=== PATIENT | female | born 1950 | race African-American/Black ===

== ENCOUNTER 2017-05-11 04:29 | Emergency (ER) | payer OTHER ==
--- NOTE | 2017-05-11 04:42 | PDOC ---
History of Present Illness - General History Source: Patient Exam Limitations: No Limitations - History of Present Illness Initial Comments: 05/11/17 05:50 The patient is a 66 year old female with a significant past medical history of HTN, HLD, and arthritis who presents to the ED with arm numbness since earlier today. The patient reports she fell asleep around 10pm last night and had a sudden onset of right arm numbness that woke her up from her sleep at 3am earlier today. The patient reports numbness, tingling, and a burning like sensation on her right hand that radiates up her arm. Patient states she typically has chronic bilateral arm pain secondary to her arthritis but notes her symptoms worsened tonight. Denies recent fall, trauma, or injury. Denies dysuria or change in urinary output. Denies chest pain or shortness of breath. Denies fever or chills. Denies sore throat. Denies nausea, vomiting, or diarrhea. Denies any other symptoms. Social hx: Patient lives at home, is retired and does not drive. 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) Disorders: No HTN: Yes Hypercholesterolemia: Yes Liver Disease: No Seizures: No Thyroid Disease: No - Surgical History Abdominal Surgery: Yes (RIGHT INGUINAL HERNIA REPAIRED) Appendectomy: No Cardiac Surgery: No Cholecystectomy: No Lung Surgery: No Neurologic Surgery: No Orthopedic Surgery: Yes (LEFT BUNIONECTOMY) - Suicide/Smoking/Psychosocial Hx Smoking Status: No Smoking History: Never smoked Have you smoked in the past 12 months: No Number of Cigarettes Smoked Daily: 0 Hx Alcohol Use: No Drug/Substance Use Hx: No Substance Use Type: None Hx Substance Use Treatment: No <Berenice Carmen - Last Filed: 05/11/17 06:35> - Past Medical History Allergies/Adverse Reactions: Allergies Allergy/AdvReac Type Severity Reaction Status Date / Time No Known Drug Allergies Allergy Verified 05/11/17 04:37 Home Medications: Ambulatory Orders Aspirin 81 mg PO DAILY 08/06/12 Omeprazole [Prilosec (RX)] 20 mg PO DAILY 08/06/12 Verapamil HCl [Verelan] 360 mg PO DAILY 08/06/12 Furosemide [Lasix -] 20 mg PO DAILY 10/04/14 Hydralazine HCl 100 mg PO BID 10/04/14 Multivit-Min/Folic Acid/Vit K1 [Multi For Her 50 Plus Softgel] 1 each PO DAILY 05/11/17 Review of Systems - Review of Systems Able to Perform ROS?: Yes Comments:: 05/11/17 05:50 CONSTITUTIONAL: Absent: fever, chills, diaphoresis, generalized weakness, malaise, loss of appetite HEENT: Absent: rhinorrhea, nasal congestion, throat pain, throat swelling, difficulty swallowing, mouth swelling, ear pain, eye pain, visual Changes CARDIOVASCULAR: Absent: chest pain, syncope, palpitations, irregular heart rate, lightheadedness , peripheral edema RESPIRATORY: Absent: cough, shortness of breath, dyspnea with exertion, orthopnea, wheezing, stridor, hemoptysis GASTROINTESTINAL: Absent: abdominal pain, abdominal distension, nausea, vomiting, diarrhea, constipation, melena, hematochezia GENITOURINARY: Absent: dysuria, frequency, urgency, hesitancy, hematuria, flank pain, genital pain MUSCULOSKELETAL: + arm numbness Absent: joint swelling SKIN: Absent: rash, itching, pallor HEMATOLOGIC/IMMUNOLOGIC: Absent: easy bleeding, easy bruising, lymphadenopathy, frequent infections ENDOCRINE: Absent: unexplained weight gain, unexplained weight loss, heat intolerance, cold intolerance NEUROLOGIC: Absent: headache, dizziness, unsteady gait, seizure, mental status changes, bladder or bowel incontinence PSYCHIATRIC: Absent: anxiety, depression, suicidal or homicidal ideation, hallucinations. All Other Systems: Reviewed and Negative <Job Warner - Last Filed: 05/11/17 06:22> *Physical Exam - Vital Signs Last Vital Signs Temp Pulse Resp BP Pulse Ox 98.7 F 90 18 122/93 96 05/11/17 04:38 05/11/17 04:38 05/11/17 04:38 05/11/17 04:38 05/11/17 04:38 - Physical Exam Comments: 05/11/17 05:50 GENERAL: Well developed, well nourished. Awake and alert. No acute distress. HEENT: Normocephalic, atraumatic. PERRLA, EOMI. No conjunctival pallor. Sclera are non- icteric. Moist mucous membranes. Oropharynx is clear. NECK: Supple. Full ROM. No JVD. Carotid pulses 2+ and symmetric, without bruits. No thyromegaly. NCo lymphadenopathy. CARDIOVASCULAR: Regular rate and rhythm. No murmurs, rubs, or gallops. Distal pulses are 2+ and symmetric. PULMONARY: No evidence of respiratory distress. Lungs clear to auscultation bilaterally. No wheezing, rales or rhonchi. ABDOMINAL: Soft. Non-tender. Non-distended. No rebound or guarding. No organomegaly. Normoactive bowel sounds. MUSCULOSKELETAL Normal range of motion at all joints. No bony deformities or tenderness. No CVA tenderness. EXTREMITIES: No cyanosis. No clubbing. No edema. No calf tenderness. SKIN: Warm and dry. Normal capillary refill. No rashes. No jaundice. NEUROLOGICAL: Alert, awake, appropriate. Cranial nerves 2-12 intact. No deficits to light touch and temperature in face, upper extremities and lower extremities. No motor deficits in the in face, upper extremities and lower extremities. Normoreflexic in the upper and lower extremities. Normal speech. Toes are down- going bilaterally. Gait is normal without ataxia. PSYCHIATRIC: Cooperative. Good eye contact. Appropriate mood and affect. <Job Warner - Last Filed: 05/11/17 06:22> - Vital Signs Last Vital Signs Temp Pulse Resp BP Pulse Ox 98.7 F 90 18 122/93 96 05/11/17 04:38 05/11/17 04:38 05/11/17 04:38 05/11/17 04:38 05/11/17 04:38 <Berenice Carmen - Last Filed: 05/11/17 06:35> NIH Stroke Scale - Last Known Well Date/Time & Onset Date Last Known Well: 05/10/17 Time Last Known Well: 22:30 - Initial Evaluation Level of consciousness: Alert Ask patient the month and their age: Answers both correctly Ask patient to open & close eyes; make fist and let go: Obeys both correctly Best gaze (horizontal eye movement): Normal Visual field testing: No visual field loss Facial paresis (Show teeth/raise eyebrows/close eyes tight): Normal symmetrical movement Motor Function: Left Arm: Normal Motor Function: Right Arm: Normal (extends arm 90 (or 45) degrees for 10 seconds without drift Motor Function: Left Leg: Normal (extends leg 30 degrees for 5 seconds without drift) Motor Function: Right Leg: Normal (extends leg 30 degrees for 5 seconds without drift) Limb Ataxia: No ataxia Sensory(Use pinprick test arms,legs,trunk,face/side to side): Normal Best language (Describe picture, name items, read sentences): No Aphasia Dysarthria (read several words): Normal articulation Extinction and Inattention: No abnormality (Pt is not having a stroke and she will not require Neruo eval or tpa or asa.) - Total Score NIH Stroke Scale Score: 0 <Berenice Carmen - Last Filed: 05/11/17 06:35> Critical Care Time/MDM Note - Medical Decision Making Note: 05/11/17 05:51 Documentation prepared by Job Warner, acting as medical records assistant for Berenice Carmen MD 05/11/17 06:22 EXAM: CERVICAL SPINE CT W/O CONTR IMPRESSION: No fracture. Mild C5-6 bilateral foraminal narrowing due to a small bulging disc osteophyte complex. Reported by: Imaging marketing communications leader EXAM: HEAD CT (STROKE) IMPRESSION: Possible subacute infarct in the left basal ganglia. No hemorrhage or mass effect. Reported by: Imaging marketing communications leader <Job Warner - Last Filed: 05/11/17 06:22> - Medical Decision Making Note: 05/11/17 06:27 Case discussed with the radiologist, who states that he sees an old lesion in the basa ganglia. read it as a subacute infarct, and he tells me that this has nothing to do with patient's current symptoms. 05/11/17 06:28 Pt comes with right hand pain and tingling. 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 Pt states that she went to sleep at 10:30 last night and woke up with arm tingling and pain at 3:30 am. She states that she has no weakness and no gross focal deficits. She was traiged as a stroke, but pt has no stroke symptoms. Pt has an appointment with Doug some time early this week. She has a normal exam in the ER. CN2-12 intact; no weakness and reflexes equal throughout. If labs are normal, she will be discharged and she can follow with PMD doug. <Berenice Carmen - Last Filed: 05/11/17 06:35> Discharge Disposition <Job Warner - Last Filed: 05/11/17 06:22> <Berenice Carmen - Last Filed: 05/11/17 06:35> - Referrals Referrals: Clif Cummings MD [Primary Care Provider] -
[2017-05-11 04:45] VITALS: BP 122/93; PULSE 90; TEMP 98.7; BMI 33.6
[2017-05-11 05:48] LABS: BASO % 0.8 % (0-2.0); EOS % 1.1 % (0-4.5); HEMATOCRIT 39.5 % (32.4-45.2); HEMOGLOBIN 13.1 GM/dL (10.7-15.3); LYMPH % 18.6 % (8-40); MCH 30.3 pg (25.7-33.7); MCHC 33.3 g/dl (32.0-36.0); MEAN CELL VOLUME 90.9 fl (80-96); MEAN PLT VOLUME 8.5 fl (7.5-11.1); MONO % 11.2 % (3.8-10.2); NEUT % 68.3 % (42.8-82.8); PLATELET COUNT 171 K/MM3 (134-434); RBC 4.34 M/mm3 (3.60-5.2); RDW 14.8 % (11.6-15.6); WHITE BLOOD COUNT 6.3 K/mm3 (4.0-10.0)
[2017-05-11 06:06] LABS: INR 1.04 (0.82-1.09); PROTHROMBIN TIME (PATIENT) 11.7 SEC (9.98-11.88)
[2017-05-11 06:17] LABS: ALBUMIN 3.7 g/dl (3.4-5.0); ALK PHOS 84 U/L (45-117); ANION GAP 11 (8-16); BILIRUBIN,TOTAL 0.7 mg/dL (0.2-1.0); BLOOD UREA NITROGEN 26 mg/dL (7-18); CALCIUM 8.5 mg/dL (8.5-10.1); CHLORIDE 107 mmol/L (98-107); CO2 24 mmol/L (21-32); CREATININE 1.1 mg/dL (0.55-1.02); GLUCOSE,RANDOM 107 mg/dL (74-106); POTASSIUM 3.9 mmol/L (3.5-5.1); SGOT/AST 18 U/L (15-37); SGPT/ALT 21 U/L (12-78); SODIUM 142 mmol/L (136-145); TOT PROT 6.8 g/dl (6.4-8.2)
[2017-05-11] MEDS ORDERED: IBUPROFEN 600 MG TABLET (FP) PO ONE ×2 (06:35→06:46)
[2017-05-11] MEDS ORDERED: METHOCARBAMOL 500 MG TABLET PO ONE (06:35)
[2017-05-11] MEDS ORDERED: METHOCARBAMOL 500 MG TABLET ONE (06:46)
--- NOTE | 2017-05-11 10:41 | EKG ---
Test Reason : Blood Pressure : / mmHG Vent. Rate : 080 BPM Atrial Rate : 080 BPM P-R Int : 170 ms QRS Dur : 082 ms QT Int : 390 ms P-R-T Axes : 038 004 012 degrees QTc Int : 449 ms NORMAL SINUS RHYTHM POSSIBLE LEFT ATRIAL ENLARGEMENT LEFT VENTRICULAR HYPERTROPHY CANNOT RULE OUT SEPTAL INFARCT , AGE UNDETERMINED ABNORMAL ECG WHEN COMPARED WITH ECG OF 17-MAR-2006 17:29, PREMATURE VENTRICULAR COMPLEXES ARE NO LONGER PRESENT Confirmed by NATALIE WANG, KAVON ([id number]) on 05/11/2017 10:41:23 AM Referred By: Confirmed By:KAVON ESTRADA MD
== END 2017-05-11 06:56 | disposition home or self-care (01) ==
LOC: JER 04:29
DX: R20.0 Anesthesia of skin (principal); R20.2 Paresthesia of skin; M79.641 Pain in right hand; I10 Essential (primary) hypertension; E78.5 Hyperlipidemia, unspecified; M19.90 Unspecified osteoarthritis, unspecified site
CPT/HCPCS: 36415; 70450-TC; 71045-TC-FY; 72125-TC; 80053; 85025; 85610; 85730; 93005; 93010; 99285-25

== ENCOUNTER 2018-02-16 05:47 | Inpatient (IN) | payer OTHER ==
[2018-02-02 18:04] VITALS: BMI 33.7
[2018-02-16] MEDS ORDERED: oxyCODONE HCL 10 MG SUSTAINED ACTING TABLET PO ONE (06:34)
[2018-02-16] MEDS ORDERED: CEFAZOLIN 2 GM in DEXTROSE 5%-WATER - 50 ML IVPB ONE (06:34)
[2018-02-16] MEDS ORDERED: TRANEXAMIC ACID 1000 MG/10 ML VIAL IVPUSH ONE (06:34)
[2018-02-16] MEDS ORDERED: GABAPENTIN 300 MG CAPSULE (FP) PO ONE (06:34)
[2018-02-16] MEDS ORDERED: CELECOXIB 200 MG CAPSULE PO ONE (06:34)
[2018-02-16] MEDS ORDERED: CEFAZOLIN 2 GM/D5W 2 GM/50 ML ML IVPB ONE (06:40)
[2018-02-16] MEDS ORDERED: oxyCODONE HCL 10 MG SUSTAINED ACTING TABLET ONE (07:00)
[2018-02-16] MEDS ORDERED: CELECOXIB 200 MG CAPSULE ONE (07:01)
[2018-02-16] MEDS ORDERED: GABAPENTIN 300 MG CAPSULE (FP) ONE (07:01)
[2018-02-16] MEDS ORDERED: VANCOMYCIN 1,000 MG VIAL (RESTRICTED TO ID ONLY) ONE (07:18)
[2018-02-16] MEDS ORDERED: ceFAZolin SODIUM 1 GM VIAL ONE ×2 (07:18→08:12)
[2018-02-16] MEDS ORDERED: MIDAZOLAM HCL 2 MG/2 ML SINGLE DOSE VIAL ONE (07:36)
[2018-02-16] MEDS ORDERED: SODIUM CHLORIDE 0.9% P/F 10 ML VIAL IJ ONE (07:37)
[2018-02-16] MEDS ORDERED: BUPIVACAINE LIPOSOME/PF (EXPAREL) 266 MG/20 ML VIAL ONE (07:37)
[2018-02-16] MEDS ORDERED: PROPOFOL 20 ML ONE ×3 (07:51)
--- NOTE | 2018-02-16 07:54 | HP ---
[facility]ellite [facility] - Chief Complaint Chief Complaint: right knee pain - Past Medical History Allergies/Adverse Reactions: Allergies Allergy/AdvReac Type Severity Reaction Status Date / Time No Known Drug Allergies Allergy Verified 02/02/18 17:56 - Current Medications Current Medications: Home Medications Medication Instructions Recorded Aspirin 81 mg PO DAILY 08/06/12 Verapamil HCl [Verelan] 360 mg PO DAILY 08/06/12 Furosemide [Lasix -] 20 mg PO DAILY 10/04/14 Hydralazine HCl 100 mg PO BID 10/04/14 Atorvastatin Ca [Lipitor] 10 mg PO DAILY 02/02/18 Famotidine [Pepcid] 40 mg PO BID 02/02/18 Satellite Physical Exam - Physical Examination Vital Signs: Vital Signs Period Temp Pulse Resp BP Sys/Jackson Pulse Ox Last 24 Hr 98.1 F 84 18 134/78 General Appearance: Well Nourished, Well Developed, Alert & Oriented x3 ENT: Clear Lung: Normal air movement Heart: Regular rate & rhythm Extremities: Other (right knee- + swelling, + ttp, decr rom , nvi xrays show grade 4 tricompartmental djd) Neurological: Intact, Alert, Oriented Satellite Impression/Plan - Impression/Plan Impression: right knee djd Operative Procedure: right gary tkr Date to be Performed: 02/16/18
[2018-02-16] MEDS ORDERED: BUPIVACAINE HCL/PF 0.5% (5MG/ML) 10 ML VIAL ONE (08:08)
[2018-02-16] MEDS ORDERED: TRANEXAMIC ACID 1000 MG/10 ML VIAL ONE (08:12)
[2018-02-16] MEDS ORDERED: DEXAMETHASONE SOD PHOSPHATE 4 MG/1 ML VIAL ONE (08:22)
[2018-02-16] MEDS ORDERED: ONDANSETRON 4 MG/2 ML VIAL ONE (08:22)
[2018-02-16] MEDS ORDERED: VANCOMYCIN 1,000 MG VIAL (RESTRICTED TO ID ONLY) IVPB ONE (10:00)
[2018-02-16] MEDS ORDERED: MAG HYDROX/AL HYDROX/SIMETH 30 ML UNIT-DOSE CUP PO PRN (10:07)
[2018-02-16] MEDS ORDERED: MAGNESIUM HYDROX 2400MG/30ML ORAL SUSPENSION 30 ML CUP PO PRN (10:07)
--- NOTE | 2018-02-16 10:09 | OP ---
Operative Note - Note: Operative Date: 02/16/18 (cal) Pre-Operative Diagnosis: right knee djd Operation: right gayr tkr Post-Operative Diagnosis: Same as Pre-op Surgeon: Arthur Mccabe Upholstery Cleaner: Vickey Martinez Anesthesiologist/SCIENTIFIC SPECIALIST: Caitie Lopez Anesthesia: Spinal, Local Specimens Removed: bone fragments Estimated Blood Loss (mls): 200 Operative Report Dictated: Yes
[2018-02-16] MEDS ORDERED: LACTATED RINGERS SOLUTION 1,000 ML IV SCH (10:15)
[2018-02-16] MEDS ORDERED: oxyCODONE HCL 5 MG TABLET PO PRN (10:41)
[2018-02-16] MEDS ORDERED: ACETAMINOPHEN 325 MG TABLET (FP) ONE (11:06)
[2018-02-16] MEDS: ACETAMINOPHEN 325 MG TABLET (FP) PO SCH ×4 (11:10→22:37)
[2018-02-16] MEDS: oxyCODONE HCL 5 MG TABLET PO PRN ×3 (11:28→21:24)
--- NOTE | 2018-02-16 11:48 | SPEC ---
DATE OF OPERATION: 02/16/2018 PREOPERATIVE DIAGNOSIS: Degenerative joint disease, right knee. POSTOPERATIVE DIAGNOSIS: Degenerative joint disease, right knee. PROCEDURE: Right total knee replacement Press-Fit with robotic-assisted navigation (MAKOplasty). SURGICAL ATTENDING: Arthur Mccabe MD CLIENT PROJECT COORDINATOR: JOLEEN Collins ANESTHESIA: Regional and spinal. CLOSURE: A Triathlon Press-Fit knee system with a 3 femur, 3 tibia, 9 polyethylene, a 35 patella; No. 1 Vicryl for fascia; 0 and 2-0 for subcutaneous; and 3-0 Monocryl subcuticular with skin glue for skin; 4-0 undyed Vicryl for pin sites. ESTIMATED BLOOD LOSS: Less than 100 mL. COMPLICATIONS: None. CONDITION: To recovery room in stable condition. DESCRIPTION OF OPERATIVE PROCEDURE: Patient was taken to the operating room on February 16, 2018. Regional and spinal anesthesia was administered by the anesthesiologist. IV Kefzol was administered prophylactically prior to the case as well as TXA. The right lower extremity was prepped and draped in the usual sterile fashion. The midline 10- to 12-cm longitudinal incision was made. Hemostasis was achieved with Bovie cautery. Sharp dissection was carried down to the extensor mechanism which was perform the procedure. Medial parapatellar arthrotomy was then performed, leaving a cuff of tissue for later closure. The patella was inverted and the knee was flexed up. The fat pad was excised. Subperiosteal dissection was done on the anteromedial proximal tibia until the knee was able to be brought forward. This was facilitated by taking the ACL, PCL and medial and lateral menisci. Checkpoints were placed in both the femur and in the tibia. Two parallel threaded pins were drilled superior to the knee joint through the already made incision from anterior to posterior just going through the anterior cortex but just engaging but not going through the posterior cortex. Two threaded pins were drilled through 2 small stab incisions in parallel fashion 1 handbreadth below the tibial tubercle through the anterior cortex of the tibia and engaging but not going through the posterior cortex. Both sets of pins were attached to navigation arrays for the PIPE system. The knee was then registered with the navigation system with center of rotation of the hip, medial and lateral malleoli and multiple sites both on the tibia and on the femur. Confirmation of excellent registration was confirmed by "popping the bubbles." At this time, the knee was thoroughly inspected to remove all osteophytes around the knee. The knee was then tensioned in varus/valgus at both full extension and at 90 degrees of flexion to ascertain our gaps. The virtual position of the components was optimized to ensure equal gaps throughout the range of motion. Once this was performed, the robot was brought into the field, was registered. The bone was cut as per the specifications on both the tibia and on the femur. The box cuts were then made as well. Excellent trial stability was obtained on the femur. The tibial baseplate was allowed to "find itself" and then was clipped into place. Confirmation of excellent external rotation of that component was confirmed by the navigation device as well.The patella was calibered for thickness and cut at the appropriate level. The appropriate lollipop was used to drill 3 holes in the patella and a trial asymmetric patellar button was applied. The knee was taken through a range of motion and found to have excellent stability from full extension to full flexion with excellent tracking of the patella. The trial components were then removed. The lug holes were drilled in the femur. The cementless keel was punched in the tibia. The real Press-Fit components were malleted into place, first with the tibia and then with the femur, and then the patella was crimped into place as well. The real polyethylene liner was then clipped into place. Range of motion, stability and tracking were as described earlier. The knee was thoroughly irrigated with copious amounts of irrigation. Vancomycin powder was placed inside the joint. The medial parapatellar arthrotomy was then closed using No. 1 Vicryl interrupted suture. Post closure of the arthrotomy, the knee was taken through a range of motion and found to have no undue tension on the repair. The subcutaneous was then pulse antibiotic irrigated, closed with 0 and 2-0 Vicryl and 3-0 Monocryl subcuticular with skin glue for the skin. Prior to closure, the checkpoints were removed as were the threaded pins. The tibial pin sites were closed with 4-0 undyed Vicryl. A sterile pressure Aquacel dressing was applied. No tourniquet was used during the case. The total blood loss was approximately 100 mL. No complication. Patient was transferred to recovery in stable condition. Matias [id number]
[2018-02-16] MEDS: ONDANSETRON 4 MG/2 ML VIAL IVPUSH PRN (12:09)
[2018-02-16] MEDS ORDERED: PROMETHAZINE HCL 25 MG/1 ML VIAL IVPB ONE (13:19)
[2018-02-16] MEDS ORDERED: CEFAZOLIN 2 GM/D5W 2 GM/50 ML ML IVPB SCH (16:00)
[2018-02-16] MEDS ORDERED: PT OWN MED DRAWER 7, Y5N ONE (16:26)
[2018-02-16] MEDS: hydrALAZINE HCL 50 MG TABLET (FP) PO SCH (21:23)
[2018-02-16] MEDS: SENNOSIDES/DOCUSATE COMBO (SENNA PLUS) TABLET (UD) PO SCH (21:24)
[2018-02-17] MEDS: oxyCODONE HCL 5 MG TABLET PO PRN ×3 (00:21→21:32)
[2018-02-17] MEDS ORDERED: CEFAZOLIN 2 GM/D5W 2 GM/50 ML ML IVPB ONE (01:00)
[2018-02-17] MEDS: ACETAMINOPHEN 325 MG TABLET (FP) PO SCH ×3 (06:03→15:53)
[2018-02-17 07:54] LABS: HEMOGLOBIN 12.2 GM/dl (10.7-15.3); MCH 29.4 pg (25.7-33.7); MCHC 32.1 g/dl (32.0-36.0); MEAN CELL VOLUME 91.4 fl (80-96); MEAN PLT VOLUME 9.8 fl (7.5-11.1); PLATELET COUNT 135 K/MM3 (134-434); RBC 4.15 M/mm3 (3.60-5.2); RDW 13.7 % (11.6-15.6); WHITE BLOOD COUNT 12.2 K/mm3 (4.0-10.8)
[2018-02-17] MEDS: ASPIRIN 325 MG TABLET PO SCH (08:13)
[2018-02-17] MEDS: MULTIVITAMINS (DAILY MVI) TABLET (FP) PO SCH (09:00)
[2018-02-17] MEDS: FUROSEMIDE 20 MG TABLET (FP) PO SCH (09:01)
[2018-02-17] MEDS: SENNOSIDES/DOCUSATE COMBO (SENNA PLUS) TABLET (UD) PO SCH ×2 (09:02→21:31)
[2018-02-17] MEDS: PANTOPRAZOLE 40 MG TABLET (FP) PO SCH (09:03)
[2018-02-17] MEDS: ATORVASTATIN CA 10 MG TABLET (FP) PO SCH (09:03)
[2018-02-17] MEDS: hydrALAZINE HCL 50 MG TABLET (FP) PO SCH ×2 (09:03→21:31)
[2018-02-17] MEDS: VERAPAMIL HCL 180 MG E.R. TABLET (FP) PO SCH (09:04)
[2018-02-17] MEDS ORDERED: PT OWN MED DRAWER 7, Y5N ONE (09:04)
[2018-02-17] MEDS ORDERED: VERAPAMIL HCL 120 MG E.R. TABLET PO SCH (10:00)
--- NOTE | 2018-02-17 11:23 | PN ---
Progress Note (short form) - Note Progress Note: Ortho Pt seen and examined s/p right gary tkr pod #1 Selected Entries 02/17/18 06:00 Temperature 98.4 F Pulse Rate 88 Respiratory 18 Rate Blood Pressure 159/87 Laboratory Tests 02/17/18 07:15 WBC 12.2 H Hgb 12.2 Hct 38.0 Plt Count 135 dressing c/d/i, calf soft, nt rom 0-40, nvi a/p PT dvt ppx pain control d/c home tomorrow if stable
--- NOTE | 2018-02-17 11:26 | PN ---
Progress Note (short form) - Note Progress Note: 67F POD1 s/p R TKR under spinal anesthetic with peripheral nerve blocks with post operative pain relief. Pt states that pain is well controlled and reports no anesthetic complications. AVSS. Motor and sensory exam intact in bilateral lower extremities. Continue current regimen.
[2018-02-17] MEDS: ONDANSETRON 4 MG/2 ML VIAL IVPUSH PRN ×2 (11:32→21:32)
[2018-02-18] MEDS: ACETAMINOPHEN 325 MG TABLET (FP) PO SCH ×3 (05:17→09:47)
[2018-02-18] MEDS ORDERED: PT OWN MED DRAWER 7, Y5N ONE (06:34)
[2018-02-18] MEDS: VERAPAMIL HCL 180 MG E.R. TABLET (FP) PO SCH ×2 (06:41→09:36)
[2018-02-18] MEDS: hydrALAZINE HCL 50 MG TABLET (FP) PO SCH ×2 (06:42→09:36)
[2018-02-18 08:18] LABS: HEMATOCRIT 33.8 % (32.4-45.2); HEMOGLOBIN 11.1 GM/dl (10.7-15.3); MCHC 32.8 g/dl (32.0-36.0); MEAN CELL VOLUME 91.5 fl (80-96); MEAN PLT VOLUME 10.1 fl (7.5-11.1); PLATELET COUNT 119 K/MM3 (134-434); RDW 13.8 % (11.6-15.6)
[2018-02-18] MEDS: ASPIRIN 325 MG TABLET PO SCH (08:25)
--- NOTE | 2018-02-18 08:37 | DS ---
Physical Examination Vital Signs: Vital Signs Temperature 100.3 F H 02/18/18 06:00 Pulse Rate 113 H 02/18/18 06:00 Respiratory Rate 20 02/18/18 06:00 Blood Pressure 149/75 02/18/18 06:00 O2 Sat by Pulse Oximetry (%) 92 L 02/18/18 08:25 Discharge Summary Reason For Visit: OSTEOARTHRITIS Procedures: Principal: right tkr Hospital Course: admitted for elective right gary tkr, uneventful post-op, stable for d/c Condition: Good - Instructions Diet, Activity, Other Instructions: Post-op Instructions-Total Knee Replacement Call the office for a follow-up appointment in 1 week - [phone] Aspirin 325mg daily for 6 weeks. Pain medication was sent into your pharmacy. Apply Graduated Compression Stockings (TEDs) to both lower extremities- remove daily for hygiene ONLY Apply Sequential Compression Device (SCDs) to both Lower extremities remove for PT and hygiene ONLY Apply cold packs to affected area for 15 minutes every 2 hours. Physical Therapist will come to your home for the first 5 days. You will be set up with outpatient PT at your first post-operative visit. Patient may ambulate as tolerated-encourage self care (at least every 2-3 hours while awake) with walker or cane Maintain Aquacel (waterproof) dressing to operative wound (will be removed by surgeon at first office visit) Shower with Aquacel dressing in place-if Aquacel integrity compromised, remove and apply dry sterile dressing and notify Orthopedist. DO NOT SHOWER unless Orthopedists approves without Aquacel dressing CONTACT THE OFFICE FOR ANY CHANGE IN YOUR CONDITION (for example-fever greater than 102 degrees, excessive bleeding from operative site, purulent drainage, severe swelling or pain) GO TO THE EMERGENCY ROOM IF THERE IS A MEDICAL EMERGENCY Knee Precautions: * Keep a rolled towel under affected heel while in bed or chair (to keep knee in extension) * Keep affected leg elevated except during mealtimes * DO NOT PLACE PILLOW UNDER AFFECTED KNEE * If you have any questions, please do not hesitate to call the office - . Referrals: Arthur Mccabe MD [Staff Physician] - Disposition: VNS/HOME HEALTH CARE - Home Medications Comprehensive Discharge Medication List: Ambulatory Orders Aspirin 81 mg PO DAILY 08/06/12 Verapamil HCl [Verelan] 360 mg PO DAILY 08/06/12 Furosemide [Lasix -] 20 mg PO DAILY 10/04/14 Hydralazine HCl 100 mg PO BID 10/04/14 Atorvastatin Ca [Lipitor] 10 mg PO DAILY 02/02/18 Famotidine [Pepcid] 40 mg PO BID 02/02/18 Aspirin [ASA -] 325 mg PO DAILY@0800 tablet 02/16/18 Oxycodone HCl/Acetaminophen [Percocet 5-325 mg Tablet -] 1 - 2 tab PO Q6H #50 tab MDD 8 02/16/18
--- NOTE | 2018-02-18 08:37 | PN ---
Progress Note (short form) - Note Progress Note: Ortho Pt seen and examined s/p right gary tkr pod #2 Selected Entries 02/18/18 06:00 Temperature 100.3 F H Pulse Rate 113 H Respiratory 20 Rate Blood Pressure 149/75 Laboratory Tests 02/18/18 07:29 WBC Pending Hgb Pending Hct Pending Plt Count Pending dressing c/d/i, calf soft, nt rom 0-40, nvi a/p PT dvt ppx pain control d/c home today f/u in 1 week
[2018-02-18 09:34] VITALS: BP 137/73; PULSE 112; TEMP 99.3
[2018-02-18] MEDS: FUROSEMIDE 20 MG TABLET (FP) PO SCH (09:35)
[2018-02-18] MEDS: ATORVASTATIN CA 10 MG TABLET (FP) PO SCH (09:35)
[2018-02-18] MEDS: SENNOSIDES/DOCUSATE COMBO (SENNA PLUS) TABLET (UD) PO SCH (09:35)
[2018-02-18] MEDS: PANTOPRAZOLE 40 MG TABLET (FP) PO SCH (09:36)
[2018-02-18] MEDS: MULTIVITAMINS (DAILY MVI) TABLET (FP) PO SCH (09:36)
[2018-02-18] MEDS: ONDANSETRON 4 MG/2 ML VIAL IVPUSH PRN (10:20)
--- NOTE | 2018-02-18 16:54 | PATH ---
Surgical Pathology Report Patient Name: AUSTIN SALDIVAR Med. Rec. #: [id number] /Age/Gender: 1950 (Age: 67) / F Account: [id number] Location: [facility] MED-SURG Taken: 02/16/2018 Received: 02/16/2018 Reported: 02/18/2018 Physicians: Arthur Mccabe M.D. Specimen(s) Received RIGHT KNEE BONES Clinical History Right knee osteoarthritis Final Diagnosis BONE, KNEE, RIGHT, TOTAL KNEE REPLACEMENT MAKOPLASTY: BONE WITH DEGENERATIVE JOINT DISEASE AND REACTIVE SYNOVIUM. Electronically Signed Deepti Evangelista M.D. Gross Description Received in formalin labeled "right knee bones," is a 12.0 x 8.5 x 1.8 cm aggregate of multiple portions of bone and soft tissue, consistent with knee bones. The articular surfaces are kiran to brown and diffusely granular. The underlying trabecular bone is yellow and hard. Tool Polisher sections are submitted in one cassette, following decalcification. 02/17/2018 [facility]02/17/2018
== END 2018-02-18 12:45 | disposition home health service (06) | DRG 470 ==
LOC: FM/S 05:47
PROVIDERS: ADMIT Orthopaedic Surgery; ATTEND Orthopaedic Surgery
PROC: 8E0Y0CZ Robotic Assisted Procedure of Lower Extremity, Open Approach (ICD-10-PCS; 2018-02-16)
PROC: 0SRC0JA Replacement of Right Knee Joint with Synthetic Substitute, Uncemented, Open Approach (ICD-10-PCS; principal; 2018-02-16 08:00)
DX: M17.11 Unilateral primary osteoarthritis, right knee (principal)
CPT/HCPCS: 36415; 73560-TC-RT-FY; 85027; 88305-TC; 88311-TC; 94760; 97116-GP; 97162-GP

== ENCOUNTER 2019-03-31 05:47 | Inpatient (IN) | payer OTHER ==
[2019-03-21 11:53] VITALS: BMI 36.7
[2019-03-31] MEDS ORDERED: CELECOXIB 200 MG CAPSULE PO ONE (06:20)
[2019-03-31] MEDS ORDERED: oxyCODONE HCL 10 MG SUSTAINED ACTING TABLET PO ONE (06:20)
[2019-03-31] MEDS ORDERED: CEFAZOLIN 2 GM in DEXTROSE 5%-WATER - 50 ML IVPB ONE (06:20)
[2019-03-31] MEDS ORDERED: TRANEXAMIC ACID 1000 MG/10 ML VIAL IVPUSH ONE (06:20)
[2019-03-31] MEDS ORDERED: PANTOPRAZOLE 40 MG TABLET PO ONE (06:21)
[2019-03-31] MEDS ORDERED: BUPIVACAINE LIPOSOME/PF (EXPAREL) 266 MG/20 ML VIAL ONE (07:02)
[2019-03-31] MEDS ORDERED: MIDAZOLAM HCL 2 MG/2 ML SINGLE DOSE VIAL ONE ×4 (07:02→17:48)
[2019-03-31] MEDS ORDERED: SODIUM CHLORIDE 0.9% P/F 10 ML VIAL IJ ONE (07:02)
[2019-03-31] MEDS ORDERED: ceFAZolin SODIUM 1 GM VIAL ONE ×3 (07:25→14:30)
[2019-03-31] MEDS ORDERED: PROPOFOL 20 ML ONE ×6 (07:26→19:34)
[2019-03-31] MEDS ORDERED: VANCOMYCIN 1,000 MG VIAL (RESTRICTED TO ID ONLY) ONE ×2 (07:26→14:30)
--- NOTE | 2019-03-31 07:50 | HP ---
Admitting History and Physical - Admission Chief Complaint: painful right total knee replacement History of Present Illness: 68 year old female presents in regard to her right knee. She is s/p a right total knee replacement. She notes pain, limited ROM, difficulty ambulating and difficulty with ADLs. Imaging revealed loosening of the arthroplasty components. She has failed conservative treatment measure including PO medications, injections, exercise programs and activity modifications. At this point, patient would like to proceed with surgical intervention - revision right total knee replacement. History Source: Patient - Past Medical History Cardiovascular: Yes: HTN, Hyperlipdemia Gastrointestinal: Yes: GERD ...: No - Past Surgical History Additional Past Surgical History: Previous right TKA See written history & physical. - Smoking History Smoking history: Never smoked Have you smoked in the past 12 months: No Aproximately how many cigarettes per day: 0 - Alcohol/Substance Use Hx Alcohol Use: No Home Medications - Allergies Allergies/Adverse Reactions: Allergies Allergy/AdvReac Type Severity Reaction Status Date / Time No Known Drug Allergies Allergy Verified 03/31/19 06:53 - Home Medications Home Medications: Ambulatory Orders Aspirin 81 mg PO DAILY 08/06/12 Verapamil HCl [Verelan] 360 mg PO DAILY 08/06/12 Furosemide [Lasix -] 20 mg PO DAILY 10/04/14 Hydralazine HCl 100 mg PO BID 10/04/14 Atorvastatin Ca [Lipitor] 10 mg PO DAILY 02/02/18 Famotidine [Pepcid] 40 mg PO BID 02/02/18 Review of Systems - Review of Systems Musculoskeletal: reports: Crepitus (Right knee), Decreased ROM (Right knee), Joint Pain (Right knee) Physical Examination Vital Signs: Vital Signs Temperature 98.4 F 03/31/19 06:56 Pulse Rate 86 03/31/19 06:56 Respiratory Rate 16 03/31/19 06:56 Blood Pressure 136/71 03/31/19 06:56 O2 Sat by Pulse Oximetry (%) 96 03/31/19 07:06 Constitutional: Yes: Well Nourished, No Distress Eyes: Yes: Conjunctiva Clear HENT: Yes: Atraumatic Neck: Yes: Supple Cardiovascular: Yes: Regular Rate and Rhythm Respiratory: Yes: Regular Gastrointestinal: Yes: Soft ...Rectal Exam: Yes: Deferred Musculoskeletal: Yes: Joint Stiffness (Right knee), Joint Swelling (Right knee) Assessment/Plan 68 year old female presents in regard to her right knee. She is s/p a right total knee replacement. She notes pain, limited ROM, difficulty ambulating and difficulty with ADLs. She has failed conservative treatment measures including PO medications, injections, exercise programs and activity modifications. Imaging revealed loosening of the arthroplasty components. At this point, patient would like to proceed with surgical intervention - revision right total knee replacement. Pros, cons, risks, benefits and alternatives of a revision right total knee replacement were discussed with the patient at length. Patient confirms her understanding and consents to proceed with a revision right total knee replacement.
[2019-03-31] MEDS ORDERED: oxyCODONE HCL 5 MG TABLET PO PRN (08:47)
[2019-03-31] MEDS ORDERED: ONDANSETRON 4 MG/2 ML VIAL IVPUSH PRN (08:47)
[2019-03-31] MEDS ORDERED: LACTATED RINGERS SOLUTION 1,000 ML IV SCH ×2 (09:00→21:00)
[2019-03-31] MEDS ORDERED: TRANEXAMIC ACID 1000 MG/10 ML VIAL ONE ×2 (14:29→19:08)
[2019-03-31] MEDS ORDERED: BUPIVACAINE HCL/PF 0.5% (5MG/ML) 10 ML VIAL ONE (14:34)
[2019-03-31] MEDS ORDERED: VANCOMYCIN 1,000 MG VIAL (RESTRICTED TO ID ONLY) IVPB ONE (18:45)
[2019-03-31] MEDS ORDERED: TRANEXAMIC ACID 1000 MG/10 ML VIAL IVPB ONE (18:46)
[2019-03-31] MEDS ORDERED: ONDANSETRON 4 MG/2 ML VIAL ONE (19:08)
[2019-03-31] MEDS ORDERED: ACETAMINOPHEN INJECTION 100 ML IVPB ONE (19:52)
[2019-03-31] MEDS ORDERED: traMADol HCL 50 MG TABLET ONE (19:52)
[2019-03-31] MEDS: ACETAMINOPHEN 1000 MG/100 ML VIAL (NON FORMULARY) IVPB ONE ×2 (20:35→21:23)
[2019-03-31] MEDS: ONDANSETRON 4 MG/2 ML VIAL IVPUSH PRN (20:40)
--- NOTE | 2019-03-31 20:44 | OP ---
Operative Note - Note: Operative Date: 03/31/19 Pre-Operative Diagnosis: right TKA aseptic loosening Operation: right revision TKA Post-Operative Diagnosis: Same as Pre-op Surgeon: Frankie Richardson Rehabilitation Case Coordinator: Alexei Amato Anesthesia: Spinal Estimated Blood Loss (mls): 200
--- NOTE | 2019-03-31 20:44 | SURG ---
Surgery Deployment Manager Note Deployment Manager: Alexei Amato PA-C Date of Service: 03/31/19 Diagnosis: Right TKA aseptic loosening Procedure: Revision right total knee replacement I was present for the entirety of the operative procedure. For further detail, please refer to operative report. Visit type - Case Type Case Type: Scheduled - New patient This patient is new to me today: Yes Date on this admission: 03/31/19
[2019-03-31] MEDS ORDERED: MAGNESIUM HYDROX 2400MG/30ML ORAL SUSPENSION 30 ML CUP PO PRN (20:47)
[2019-03-31] MEDS ORDERED: MAG HYDROX/AL HYDROX/SIMETH 30 ML UNIT-DOSE CUP PO PRN (20:47)
[2019-03-31] MEDS: traMADol HCL 50 MG TABLET PO SCH (21:22)
[2019-03-31] MEDS: FAMOTIDINE 20 MG TABLET PO SCH (21:41)
[2019-03-31] MEDS: oxyCODONE HCL 10 MG SUSTAINED ACTING TABLET PO SCH (21:41)
[2019-03-31] MEDS: hydrALAZINE HCL 50 MG TABLET (FP) PO SCH (21:41)
[2019-03-31] MEDS: ATORVASTATIN CA 10 MG TABLET (FP) PO SCH (21:41)
[2019-03-31] MEDS: SENNOSIDES/DOCUSATE COMBO (SENNA PLUS) TABLET (UD) PO SCH (21:43)
[2019-03-31] MEDS: GABAPENTIN 300 MG CAPSULE PO SCH (21:43)
[2019-03-31] MEDS: ASCORBIC ACID 500 MG TABLET (FP) PO SCH (21:44)
[2019-04-01] MEDS: CEFAZOLIN 2 GM/D5W 2 GM/50 ML ML IVPB SCH ×2 (01:19→10:08)
[2019-04-01] MEDS: traMADol HCL 50 MG TABLET PO SCH ×2 (02:42→10:08)
[2019-04-01] MEDS ORDERED: DEXAMETHASONE SOD PHOSPHATE 10 MG/1 ML VIAL IVPB ONE (03:00)
[2019-04-01] MEDS: oxyCODONE HCL 5 MG TABLET PO PRN ×2 (04:47→22:06)
[2019-04-01 07:29] LABS: HEMOGLOBIN 11.4 GM/dl (10.7-15.3); MCH 29.6 pg (25.7-33.7); MCHC 32.5 g/dl (32.0-36.0); MEAN CELL VOLUME 90.9 fl (80-96); MEAN PLT VOLUME 8.6 fl (7.5-11.1); PLATELET COUNT 154 K/MM3 (134-434); RBC 3.85 M/mm3 (3.60-5.2); RDW 13.4 % (11.6-15.6); WHITE BLOOD COUNT 10.1 K/mm3 (4.0-10.8)
[2019-04-01 07:50] LABS: CALCIUM 8.4 mg/dl (8.5-10); CREATININE 1.2 mg/dl (0.55-1.3); POTASSIUM 4.3 mmol/L (3.5-5.1)
[2019-04-01] MEDS: ONDANSETRON 4 MG/2 ML VIAL IVPUSH PRN ×2 (08:06→13:19)
[2019-04-01] MEDS: ASPIRIN 325 MG TABLET PO SCH (08:06)
[2019-04-01] MEDS: PANTOPRAZOLE 40 MG TABLET PO SCH (09:55)
[2019-04-01] MEDS: VERAPAMIL HCL 180 MG E.R. TABLET PO SCH (09:55)
[2019-04-01] MEDS: ASCORBIC ACID 500 MG TABLET (FP) PO SCH ×2 (09:55→21:53)
[2019-04-01] MEDS: FAMOTIDINE 20 MG TABLET PO SCH ×2 (09:55→21:53)
[2019-04-01] MEDS: hydrALAZINE HCL 50 MG TABLET (FP) PO SCH ×2 (09:55→21:54)
[2019-04-01] MEDS: FUROSEMIDE 20 MG TABLET (FP) PO SCH (09:55)
[2019-04-01] MEDS: GABAPENTIN 300 MG CAPSULE PO SCH ×2 (09:55→21:53)
[2019-04-01] MEDS: MULTIVITAMINS (DAILY MVI) TABLET (FP) PO SCH (09:55)
[2019-04-01] MEDS: oxyCODONE HCL 10 MG SUSTAINED ACTING TABLET PO SCH (09:56)
[2019-04-01] MEDS: SENNOSIDES/DOCUSATE COMBO (SENNA PLUS) TABLET (UD) PO SCH ×2 (09:56→21:53)
[2019-04-01] MEDS ORDERED: DEXAMETHASONE SOD PHOSPHATE 4 MG/1 ML VIAL IVPUSH PRN (09:57)
[2019-04-01] MEDS ORDERED: SCOPOLAMINE HYDROBROMIDE 1 PATCH PATCH.TD72 TD SCH (10:00)
--- NOTE | 2019-04-01 10:00 | PN ---
Progress Note, Physician Chief Complaint: s/p right TIA under spinal anesthesia History of Present Illness: POST OP DAY ONE WITH PERIPHERAL NERVE BLOCK FOR POST OP PAIN CONTROL - Current Medication List Current Medications: Active Medications Al Hydroxide/Mg Hydroxide (Mylanta Oral Suspension -) 30 ml PO Q4H PRN PRN Reason: DYSPEPSIA Last Admin: 04/01/19 08:06 Dose: 30 ml Ascorbic Acid (Vitamin C -) 500 mg PO BID [facility] Last Admin: 03/31/19 21:44 Dose: Not Given Aspirin (Asa -) 325 mg PO DAILY@0800 [facility] Last Admin: 04/01/19 08:06 Dose: 325 mg Atorvastatin Calcium (Lipitor -) 10 mg PO HS [facility] Last Admin: 03/31/19 21:41 Dose: 10 mg Dexamethasone Sodium Phosphate (Decadron Injection -) 4 mg IVPUSH Q6H-IV PRN PRN Reason: NAUSEA Famotidine (Pepcid -) 40 mg PO BID [facility] Last Admin: 03/31/19 21:41 Dose: 40 mg Furosemide (Lasix -) 20 mg PO DAILY [facility] Gabapentin (Neurontin -) 300 mg PO BID [facility] Stop: 04/03/19 21:59 Last Admin: 03/31/19 21:43 Dose: Not Given Hydralazine HCl (Apresoline -) 100 mg PO BID [facility] Last Admin: 03/31/19 21:41 Dose: 100 mg Lactated Ringer's (Lactated Ringers Solution) 1,000 mls @ 75 mls/hr IV ASDIR [facility] Last Admin: 04/01/19 07:59 Dose: Not Given Cefazolin Sodium/Dextrose (Ancef 2 Gm Premixed Ivpb -) 2 gm in 50 mls @ 100 mls /hr IVPB Q8H-IV [facility] Stop: 04/01/19 10:29 Last Admin: 04/01/19 01:19 Dose: 100 mls/hr Magnesium Hydroxide (Milk Of Magnesia -) 30 ml PO PRN PRN PRN Reason: CONSTIPATION Multivitamins/Minerals/Vitamin C (Tab-A-Vit -) 1 tab PO DAILY [facility] Ondansetron HCl (Zofran Injection) 4 mg IVPUSH Q6H PRN PRN Reason: NAUSEA Last Admin: 04/01/19 08:06 Dose: 4 mg Oxycodone HCl (Roxicodone -) 5 mg PO Q3H PRN PRN Reason: PAIN LEVEL 1-5 Last Admin: 04/01/19 04:47 Dose: 5 mg Oxycodone HCl (Roxicodone -) 10 mg PO Q3H PRN PRN Reason: PAIN LEVEL 6-10 Last Admin: 03/31/19 21:42 Dose: 10 mg Oxycodone HCl (Oxycontin -) 10 mg PO BID [facility] Stop: 04/03/19 21:59 Last Admin: 03/31/19 21:41 Dose: 10 mg Pantoprazole Sodium (Protonix -) 40 mg PO DAILY [facility] Scopolamine HBr (Transderm-Scop -) 1 patch TD Q72H [facility] Senna/Docusate Sodium (Pericolace -) 2 tablet PO BID [facility] Last Admin: 03/31/19 21:43 Dose: Not Given Tramadol HCl (Ultram -) 50 mg PO Q6H [facility] Last Admin: 04/01/19 02:42 Dose: 50 mg Verapamil HCl (Calan Sr -) 360 mg PO DAILY [facility] - Objective Vital Signs: Vital Signs Temperature 98.4 F 04/01/19 05:47 Pulse Rate 94 H 04/01/19 05:47 Respiratory Rate 18 04/01/19 07:56 Blood Pressure 157/86 04/01/19 05:47 O2 Sat by Pulse Oximetry (%) 94 L 04/01/19 05:47 Constitutional: Yes: Well Nourished Cardiovascular: Yes: WNL Respiratory: Yes: WNL Gastrointestinal: Yes: WNL Labs: CBC, BMP 04/01/19 06:57 04/01/19 06:57 Assessment/Plan patient complaining of nausea not helped by zofran, will add decadron and scopalamine. Otherwise no anesthetic complications, dept of anesthesiology will sign off care at this time
[2019-04-01] MEDS ORDERED: SCOPOLAMINE HYDROBROMIDE 1 PATCH PATCH.TD72 ONE (10:02)
[2019-04-01] MEDS ORDERED: PROMETHAZINE HCL 25 MG/1 ML VIAL IVPUSH ONE (14:45)
[2019-04-01] MEDS: ATORVASTATIN CA 10 MG TABLET (FP) PO SCH (21:55)
[2019-04-02] MEDS: oxyCODONE HCL 5 MG TABLET PO PRN ×2 (06:24→09:58)
[2019-04-02 06:28] VITALS: BP 101/88; PULSE 93; TEMP 98.3
--- NOTE | 2019-04-02 07:38 | DS ---
Physical Examination Vital Signs: Vital Signs Temperature 98.3 F 04/02/19 06:00 Pulse Rate 93 H 04/02/19 06:00 Respiratory Rate 18 04/02/19 06:00 Blood Pressure 101/88 04/02/19 06:00 O2 Sat by Pulse Oximetry (%) 93 L 04/02/19 06:00 Labs: CBC, BMP 04/01/19 06:57 Discharge Summary Problems reviewed: Yes Reason For Visit: OSTEOARTHRITIS Current Active Problems Failed total right knee replacement (Acute) Procedures: Principal: revision right TKA Hospital Course: Admitted for elective surgery. Procedure performed without complications. Pt received postoperative antibiotic prophylaxis and DVT ppx. Ambulated with physical therapy. Stable for discharge home with outpatient followup. Condition: Stable - Instructions Diet, Activity, Other Instructions: [facility] Dr. Richardson - Knee Replacement Instructions Keep the Aquacel dressing on until removed by Dr. Richardson in the office - it is antibacterial and waterproof and you can shower with it on. Call the office for a follow-up appointment with Dr. Richardson in 2 weeks. Take one Aspirin 325mg daily for 6 weeks to prevent blood clots in your legs. Take one Pantoprazole 40mg daily for 6 weeks to protect against heartburn and ulcers. Take Cephalexin (antibiotic) 3x/day for 10 days to help prevent skin infection. Take a multivitamin, stool softener, and extra Vitamin C supplement daily. Take ondansetron every 8 hours as needed for nausea. For pain: *Mild pain (1-3/10): Take 1 Tramadol tablet every 4 hours as needed. Moderate pain (4-6/10): Take 1 Tramadol tablet and 1 Percocet tablet every 4 hours as needed. Severe pain (7-10/10): Take 1 Tramadol tablet and 2 Percocet tablets every 4 hours as needed. Activity: You can put as much weight on the operative leg as you want. Right after you get home, there will be a physical therapist coming to your house to help you walk around and bend/straighten your knee. After your follow-up appointment, you will be sent for more intensive outpatient physical therapy which will include machines and equipment that the home therapist cannot bring to your house. Always use a walker or cane for balance and to prevent falls. Expect to see swelling/bruising from the operative site all the way down to your toes. Wear the compression stocking on the operative side during the day to minimize how much swelling there is in your foot/ankle. Don't wear the stocking at night. You don't have to wear a stocking on the other side. Disposition: [facility]NS/HOME HEALTH CARE - Home Medications Comprehensive Discharge Medication List: Ambulatory Orders Verapamil HCl [Verelan] 360 mg PO DAILY 08/06/12 Furosemide [Lasix -] 20 mg PO DAILY 10/04/14 Hydralazine HCl 100 mg PO BID 10/04/14 Atorvastatin Ca [Lipitor] 10 mg PO DAILY 02/02/18 Famotidine [Pepcid] 40 mg PO BID 02/02/18 Ascorbic Acid [Vitamin C -] 500 mg PO BID tablet 04/02/19 Aspirin [ASA -] 325 mg PO DAILY@0800 tablet 04/02/19 Cephalexin Monohydrate [Keflex -] 500 mg PO TID #30 capsule 04/02/19 Multivitamins [Multivit ([facility] Formulary)] 1 tab PO DAILY tab 04/02/19 Ondansetron [Zofran *Odt*] 4 mg SL Q8H PRN #21 od.tablet 04/02/19 Oxycodone HCl/Acetaminophen [Percocet 5-325 mg Tablet] 1 - 2 tab PO Q4H PRN #60 tablet MDD 10 04/02/19 Pantoprazole Sodium [Protonix -] 40 mg PO DAILY #40 tablet.ec 04/02/19 Sennosides/Docusate Sodium [Pericolace -] 2 tablet PO BID tablet 04/02/19 traMADol HCL [Ultram -] 50 mg PO Q4H PRN #42 tablet MDD 6 04/02/19
[2019-04-02] MEDS: ASPIRIN 325 MG TABLET PO SCH (07:58)
[2019-04-02 08:22] LABS: HEMATOCRIT 33.6 % (32.4-45.2); HEMOGLOBIN 11.2 GM/dl (10.7-15.3); MCH 30.1 pg (25.7-33.7); MCHC 33.3 g/dl (32.0-36.0); MEAN CELL VOLUME 90.6 fl (80-96); MEAN PLT VOLUME 8.8 fl (7.5-11.1); PLATELET COUNT 134 K/MM3 (134-434); RBC 3.71 M/mm3 (3.60-5.2); RDW 13.1 % (11.6-15.6); WHITE BLOOD COUNT 12.2 K/mm3 (4.0-10.8)
[2019-04-02] MEDS: SENNOSIDES/DOCUSATE COMBO (SENNA PLUS) TABLET (UD) PO SCH (09:56)
[2019-04-02] MEDS: FUROSEMIDE 20 MG TABLET (FP) PO SCH (09:56)
[2019-04-02] MEDS: MULTIVITAMINS (DAILY MVI) TABLET (FP) PO SCH (09:56)
[2019-04-02] MEDS: hydrALAZINE HCL 50 MG TABLET (FP) PO SCH (09:57)
[2019-04-02] MEDS: FAMOTIDINE 20 MG TABLET PO SCH (09:57)
[2019-04-02] MEDS: VERAPAMIL HCL 180 MG E.R. TABLET PO SCH (09:57)
[2019-04-02] MEDS: ASCORBIC ACID 500 MG TABLET (FP) PO SCH (09:58)
[2019-04-02] MEDS: GABAPENTIN 300 MG CAPSULE PO SCH (09:58)
[2019-04-02] MEDS: PANTOPRAZOLE 40 MG TABLET PO SCH (09:59)
[2019-04-02] MEDS ORDERED: REFRIGERATED ANITBIOTICS ONE (10:05)
--- NOTE | 2019-04-05 17:36 | OP ---
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 POSTOPERATIVE DIAGNOSIS: Failed right total knee replacement. PROCEDURE: Revision of right total knee replacement femoral and tibia components. ATTENDING SURGEON: Elizabeth Partida MD MILLINER HELPER: JOLEEN Umaña ANESTHESIA: Spinal plus sedation. ESTIMATED BLOOD LOSS: 200 mL. COMPLICATIONS: None. DISPOSITION: The patient was transferred to the PACU in stable condition. IMPLANTS USED: [place] [employer] TS size 4 femoral and tibial components with 15 x 12-mm femoral and tibial stems, 5-mm distal lateral femoral augment, 13-mm total stabilized polyethylene component. INDICATIONS: This is a 68-year-old female who underwent a right total knee replacement approximately 1 year ago and had pain and progressive laxity starting very early on. She continued to follow with her original surgeon, but the symptoms were not improving, and she came to me for a second opinion. Physical examination revealed considerable varus, valgus laxity, which led to instability when she walked. Findings were discussed with the patient, and treatment options were discussed. She could require revision for a thicker, more constrained polyethylene component. However, the current components, which she had were cementless/press-fit components, which would not allow the use of a constrained polyethylene. Therefore, a full revision to traditional cemented components will be necessary. She was instructed to wait 1 full year for the knee to heal and then determine at that point if the final result was acceptable or she still wanted to continue with the revision. The patient was seen back at approximately 1 year postop, and she still had considerable pain, laxity, and constant feeling of instability. She was, therefore, indicated for a revision of the total knee replacement. The risks, benefits, and alternatives to the procedure were explained to the patient in great detail, and she elected to proceed with the procedure. DESCRIPTION OF PROCEDURE: On the day of surgery, the patient was taken to the operating room and placed on the OR table. Spinal anesthesia was administered by the anesthesiologist. The patient was then positioned supine on the table, and all bony prominences were padded. The right lower extremity was then prepped and draped in the usual sterile fashion, and intravenous antibiotics were given for infection prophylaxis. A surgical time-out was then performed with the team, and the patients identity, procedure, side, availability of implants, and the administration of antibiotics was confirmed. With the knee flexed, a midline incision was made, carried down through the subcutaneous fat to the underlying retinaculum. This incision incorporated the previous knee replacement incision scar. A medial parapatellar arthrotomy was performed. This was followed by a subperiosteal dissection of the tissue off the proximal, medial tibia. A portion of fat pad and scar tissue was removed from under the patellar tendon, which was found to be fibrotic and thickened. A small portion of fat and scar tissue was excised from the distal supracondylar femur as well. Additional arthrolysis was performed as scar tissue was removed using electrocautery and sharp dissection to re-establish the medial and lateral gutters. The knee was then flexed further, and the polyethylene insert was removed to create space to work and to provide greater visualization of the components. The patellar component was found to be well positioned and well fixed and was left alone. Hohmann retractors were then placed around the distal femur. Flexible and rigid osteotomes were used to separate the femoral component from the underlying bone taking care to preserve as much bone stock as possible. This was easily removed using the femoral insertion clamp and a slap hammer. Attention was then turned to the tibia. Hohmann retractors were used to translate the tibia anteriorly and protect the collateral ligaments. We noted that the lateral aspect of the tibial tray had subsided and was below the level of the cut surface of the cortex of the tibia. The medial surface appeared to be slightly tipped up as there was a small gap visible between the base of the implant and the cut surface of the tibia. It did appear that this happened early on postop as the tibia was not currently mobile, and ingrowth had eventually occurred in this altered position. Flexible and rigid osteotomes were then used to separate the tibial component from the underlying bone taking care to preserve as much bone stock as possible. The proximal tibia was then cut with a saw. Once this was completed, trial components were placed, and the knee was taken through a full range of motion. Soft tissue balance was assessed in both flexion and extension and found to be appropriate. The knee was stable through the full range of motion and was found to have both good balance and good patellar tracking. All the components were then removed. All bony surfaces were then cleaned with pulsatile lavage and dried. Bone cement was then prepared on the back table, and the final components were assembled and cemented in place in the usual fashion. Extruded cement was removed. The polyethylene trial was placed, and the knee was put into extension. Axial pressure was applied for compression while the cement hardened. Once the cement had hardened, the knee was taken through a full range of motion to assess stability, balance, and patellar tracking. This was found to be optimal, and the trial polyethylene was exchanged for the appropriately sized real implant. In this case, we chose to use a constrained polyethylene component. The wound was then thoroughly irrigated with normal saline, and a 3-minute dilute Betadine lavage was performed. Following this, further irrigation was performed using a pulsatile lavage device. No. 1 Vicryl and No. 0 VLoc 180 barbed sutures were used to close the arthrotomy. No. 1 Vicryl sutures were used for the deep subcutaneous tissues; 2-0 V-Loc 90 running barbed suture was used for the superficial subcutaneous tissue. The skin was closed using both 3-0 V-Loc 90 suture in a running subcuticular fashion and Dermabond skin adhesive. Once this was completed, a sterile Aquacel dressing was applied. The patient was awakened and taken to the PACU in stable condition. ELIZABETH PARTIDA M.D. [id number]
--- NOTE | 2019-04-08 13:41 | PATH ---
Surgical Pathology Report Patient Name: AUSTIN SALDIVAR Med. Rec. #: [id number] /Age/Gender: 1950 (Age: 68) / F Account: [id number] Location: [facility] Taken: 03/31/2019 Received: 03/31/2019 Reported: 04/08/2019 Physicians: Frankie Richardson M.D. Specimen(s) Received RIGHT KNEE EXPLANTS Clinical History Aseptic loosening, status post right total knee replacement Final Diagnosis EXPLANTS, RIGHT KNEE: HARDWARE, DESCRIBED (GROSS EXAMINATION ONLY). Electronically Signed Francisca Dooley M.D. Gross Description Received fresh labeled "right knee explant," are 2 myles metallic and one white plastic foreign body, consistent with a knee explant. The specimens range from 6.3-7.0 cm the greatest dimension. No soft tissue is present. No sections are submitted, gross only. /04/04/2019 saudi04/04/2019
== END 2019-04-02 10:55 | disposition home health service (06) | DRG 468 ==
LOC: FM/S 05:47
PROVIDERS: ADMIT Student in an Organized Health Care Education/Training Program; ATTEND Student in an Organized Health Care Education/Training Program
PROC: 0SPV0JZ Removal of Synthetic Substitute from Right Knee Joint, Tibial Surface, Open Approach (ICD-10-PCS; 2019-03-31)
PROC: 0SRC0J9 Replacement of Right Knee Joint with Synthetic Substitute, Cemented, Open Approach (ICD-10-PCS; principal; 2019-03-31 16:43)
DX: T84.032A Mechanical loosening of internal right knee prosthetic joint, initial encounter (principal); I10 Essential (primary) hypertension; E78.5 Hyperlipidemia, unspecified; K21.9 Gastro-esophageal reflux disease without esophagitis; Y83.8 Other surgical procedures as the cause of abnormal reaction of the patient, or of later complication, without mention of misadventure at the time of the procedure
CPT/HCPCS: 36415; 73560-TC-RT-FY; 80048; 85027; 88300-TC; 94760; 97116-GP; 97163-GP; J0131; J1100

== ENCOUNTER 2020-05-03 06:58 | Day surgery (SDC) | payer OTHER ==
[2020-04-30 14:34] VITALS: BMI 38.0
[2020-05-03] MEDS ORDERED: LIDOCAINE HCL/PF 2% SDV 5ML VIAL ONE (07:06)
[2020-05-03] MEDS ORDERED: PROPOFOL 20 ML ONE ×3 (07:07)
[2020-05-03] MEDS ORDERED: ONDANSETRON 4 MG/2 ML VIAL ONE (08:28)
[2020-05-03 08:56] VITALS: TEMP 97.6
[2020-05-03 09:24] VITALS: BP 118/67; PULSE 88
== END 2020-05-03 09:50 | disposition home or self-care (01) ==
LOC: FASU-ENDO 06:58
PROVIDERS: ATTEND Internal Medicine Gastroenterology
PROC: 0DJD8ZZ Inspection of Lower Intestinal Tract, Via Natural or Artificial Opening Endoscopic (ICD-10-PCS; principal; 2020-05-03 08:27)
DX: Z12.11 Encounter for screening for malignant neoplasm of colon (principal); K57.30 Diverticulosis of large intestine without perforation or abscess without bleeding; Z86.010 Personal history of colon polyps; Z80.0 Family history of malignant neoplasm of digestive organs

== ENCOUNTER 2020-05-05 01:35 | Emergency (ER) | payer OTHER ==
[2020-05-05 02:07] VITALS: BMI 37.0
[2020-05-05 02:19] VITALS: TEMP 97.6
== END 2020-05-05 03:52 | disposition home or self-care (01) ==
LOC: JER 01:35
DX: R09.89 Other specified symptoms and signs involving the circulatory and respiratory systems (principal)
CPT/HCPCS: 70360-TC-FY; 99284-25

== ENCOUNTER 2020-09-19 07:26 | Day surgery (SDC) | payer OTHER ==
[2020-09-17 16:08] VITALS: BMI 37.9
[2020-09-19] MEDS ORDERED: LIDOCAINE HCL/PF 2% SDV 5ML VIAL ONE (07:35)
[2020-09-19] MEDS ORDERED: PROPOFOL 20 ML ONE ×4 (07:36)
[2020-09-19] MEDS ORDERED: ONDANSETRON 4 MG/2 ML VIAL ONE (08:58)
[2020-09-19 09:56] VITALS: PULSE 75; TEMP 98
[2020-09-19 09:59] VITALS: BP 149/82
== END 2020-09-19 09:56 | disposition home or self-care (01) ==
LOC: FASU-ENDO 07:26
PROVIDERS: ATTEND Internal Medicine Gastroenterology
PROC: 0DB68ZX Excision of Stomach, Via Natural or Artificial Opening Endoscopic, Diagnostic (ICD-10-PCS; 2020-09-19)
PROC: 0DB38ZX Excision of Lower Esophagus, Via Natural or Artificial Opening Endoscopic, Diagnostic (ICD-10-PCS; 2020-09-19)
PROC: 0D748DZ Dilation of Esophagogastric Junction with Intraluminal Device, Via Natural or Artificial Opening Endoscopic (ICD-10-PCS; 2020-09-19)
PROC: 0DB98ZX Excision of Duodenum, Via Natural or Artificial Opening Endoscopic, Diagnostic (ICD-10-PCS; principal; 2020-09-19 09:00)
DX: K31.7 Polyp of stomach and duodenum (principal); K31.9 Disease of stomach and duodenum, unspecified; K21.00 Gastro-esophageal reflux disease with esophagitis, without bleeding; R13.10 Dysphagia, unspecified